=== PATIENT | female | born 1990 | race Caucasian/White ===

== ENCOUNTER 2023-12-01 11:28 | Emergency (ER) | payer OTHER, SELFPAY ==
[2023-12-01 11:29] VITALS: BP 170/109; BMI 25.9
[2023-12-01 12:30] VITALS: BP 141/92
--- NOTE | 2023-12-01 12:42 | ED.GENMED ---
History of Present Illness
General
Chief Complaint: Alcohol Problem
Source: patient
Exam Limitations: none
Time Seen by Provider: 12/01/23 12:32
Nursing documentation reviewed up to this point in time: agreed with
Travel History
Have you had any contact with someone who has COVID-19?: No
Do you have any symptoms of coronavirus? Fever > 100 degrees, chills, cough, shortness of breath, sore throat, loss of taste or smell, muscle aches, or headache?: No
History of Present Illness
History of Present Illness:
33-year-old female with a history of alcohol dependence and methadone maintenance for former opiate abuse presents for request for detox. Patient says that she was last hospitalized in August at [facility] for inpatient alcohol detox but has since
been drinking a liter of vodka daily. Her last use was about 8 hours ago. She is currently having no symptoms but has had intermittent episodes where she feels nauseous and is sweaty and has had some diarrhea. It is minimal at this time and she
is not requesting any medications. She does not feel shaky, anxious, irritable, denies headache, hallucinations. She has had an alcohol withdrawal seizure previously. Patient missed her methadone dose yesterday and did not get it today because
they are closed. Her last menstrual cycle was 3 weeks ago. She has no medical complaints
Past History
Past History
ED Past Medical History: GERD, Psychiatric (Anxiety), Other (Substance Abuse (Opioids/Alcohol/Heroin)) and Other (Hepatitis C)
ED Past Surgical History: None
Patient has exhibited threatening behavior?: No
Social History
Tobacco: Smoker
Alcohol: Daily
Drug: Former user (Opioids/Heroin)
Personal: Single
Living: with family
Employment: Employed
Family History
Family History: Other (Noncontributory)
Review of Systems
Review of Systems
Allergies reviewed?: Yes
All Other Systems: Not applicable
Phy Exam
Physical Exam
Physical Exam:
GENERAL: Alert , in no apparent distress, calm, not diaphoretic, comfortable
EYE: pupils equal and reactive
NECK: Supple
ENT: o/p clr, mmm.
CARDIAC: Regular rate and rhythm .
LUNGS: Clear breath sounds bilaterally, no acute respiratory distress, no wheezes/rales/rhonchi
ABDOMEN: Soft, without focal tenderness, no r/g, no cvat, normal bowel sounds
NEUROLOGICAL: Alert and oriented, no focal neuro deficits, no hallucinations, no tremor
SKIN: Warm and dry, skin intact.
MUSCULOSKELETAL: No edema, well perfused. neg elma's sign
PSYCH: Normal and appropriate interaction.
Scores
Withdrawal Assessment of Alcohol
Withdrawal Assessment Completed?: Yes
Nausea and Vomiting: No nausea and no vomiting
Tactile Disturbances: None
Tremor: No tremor
Auditory Disturbances: Not present
Paroxysmal Sweats: No sweat visible
Visual Disturbances: Not present
Anxiety: Mild anxiety
Headache, Fullness in Head: Not present
Agitation: Normal activity
Orientation and clouding of sensorium: Oriented and can do serial additions
Total CIWA Score: 1
Alcohol Withdrawal Medication Recommendation: Equal to MSAS Score 0-4. Monitor & re-assess q2hrs, NO MEDICATION NEEDED
Course
Orders/Labs/Results
Orders:
Orders
12/01/23 12:56
Lorazepam [Ativan] 1 mg PO NOW STA
Vital Signs
Pulse: 84
Blood pressure: 141/92
Initial and Last Documented VS:
Initial Vital Signs
Temp Pulse Resp BP Pulse Ox
98.5 F 94 16 170/109 98
12/01/23 11:29 12/01/23 11:29 12/01/23 11:29 12/01/23 11:29 12/01/23 11:29
Last Documented Vital Signs
Temp Pulse Resp BP Pulse Ox
98.5 F 97 20 128/96 98
12/01/23 11:29 12/01/23 13:00 12/01/23 13:00 12/01/23 13:00 12/01/23 13:00
MDM/Problems Addressed
Differential Diagnosis Includes:
Alcohol abuse, withdrawal, detox request
MDM/Problems Addressed:
33-year-old female with a history of daily alcohol use requesting detox inpatient. Patient has had 1 alcohol withdrawal seizure and she tried to detox on her own in the past. Her last drink was about 8 hours ago. She has not had severe symptoms
today. Patient also missed her methadone dose. Patient was already seen by Ze shaw and he confirmed that she has a bed at [facility]. We are at this point we have medically cleared the patient, she is awake and not currently intoxicated but not
having any withdrawal symptoms. It sounds as if she will be transported to [facility] rather quickly and thus does not require any medication at this time. If there is any delay we will give her dose of Ativan
Note that the patient was getting picked up later than expected, at 130 so I did give her a dose of oral Ativan because she is aware that she probably will get medications there for several hours
*Critical Care Note
Total Time (30-74mins, 75-104mins- exclusive of procedures): Not Applicable
ED Attending Note
-
Portions of this chart may have been created with voice recognition software.� Occasional wrong word or��sound alike� substitutions may have occurred due to the inherent limitations of voice recognition software.
Discharge Plan
Departure
Patient Disposition: Acute Rehab Facility
Date of Disposition: 12/01/23
Time of Disposition: 12:57
Patient with high blood pressure during this ER visit?: Yes
Condition: Fair
Covid-19: Not Applicable
Discharge Problem:
Substance abuse
Instructions: Alcohol Use Disorder (DC), BLOOD PRESSURE
Prescriptions:
No Action
escitalopram oxalate 20 MG tablet
20 mg PO DAILY
thiamine HCl (vitamin B1) 100 mg Tablet
100 mg PO BID Qty: 90 0RF
lorazepam [Ativan] 2 mg/mL Solution
2 mg IV Q1HPRN PRN (Reason: MSAS > 11) Qty: 25 0RF
lorazepam [Ativan] 2 mg/mL Solution
1 mg IV Q2HPRN PRN (Reason: MSAS 5-7) Qty: 25 0RF
lorazepam [Ativan] 2 mg/mL Solution
1 mg IV Q1HPRN PRN (Reason: MSAS 8-11) Qty: 25 0RF
lorazepam [Ativan] 2 mg/mL Solution
1 mg IV Q1HPRN PRN (Reason: AGITATION) Qty: 25 0RF
folic acid 1 mg Tablet
1 mg PO DAILY Qty: 90 0RF
phenobarbital 32.4 mg Tablet
32.4 mg PO TID Qty: 6 0RF
Rx Instructions:
Start Date: January 11, 2023 at 22:00
phenobarbital 32.4 mg Tablet
64.8 mg PO TID Qty: 12 0RF
Rx Instructions:
Start Date: January 09, 2023 at 22:00
pantoprazole 40 mg Tablet,Delayed Release (Dr/Ec)
40 mg PO DAILY Qty: 30 0RF
magnesium oxide 400 mg (241.3 mg magnesium) tablet
400 mg PO DAILY Qty: 30 0RF
methadone 10 mg/mL Concentrate
70 mg PO DAILY
Patient Comments:
01/07/23; confirmed dose with [facility] ([phone]). Pt last seen 12/31/22 and was given dose for 01/01/23.
Activity Restrictions/Additional Instructions:
You are accepted at [facility] today. Please go directly there. Return for any concerns
Good luck in your recovery
Interventions
Interventions:
*Risk Screen - Suicide Last Done: 12/01/23 11:29
*General Assessment Last Done: 12/01/23 13:43
*Neglect/Abuse Screening Last Done: 12/01/23 11:29
ED- Fall Risk Assessment Last Done: 12/01/23 13:11
*ED COVID-19 Vaccine History Last Done: 12/01/23 13:45
*Nursing Disposition Last Done: 12/01/23 13:43
ED- Neurological Assessment Last Done: 12/01/23 13:11
ED-Psychological Assessment Last Done: 12/01/23 13:11
Discharge Date and Time
Discharge Date/Time: 12/01/23 13:45
Print Language: KOREAN
[2023-12-01 13:00] VITALS: BP 128/96
[2023-12-01] MEDS: ATIVAN 1 MG PO (13:05)
== END 2023-12-01 13:45 ==
LOC: EMR 11:28
PROVIDERS: EMERGENCY PHYSICIAN Emergency Medicine
DX: F10.10 Alcohol abuse, uncomplicated (principal); F41.9 Anxiety disorder, unspecified; K21.9 Gastro-esophageal reflux disease without esophagitis; F17.200 Nicotine dependence, unspecified, uncomplicated
CPT/HCPCS: 99282